=== PATIENT | male | born 1950 | race Two or more races ===

== ENCOUNTER 2017-10-30 09:12 | Outpatient (CLI) | payer OTHER ==
[~2017-10-30 09:12] MED LIST: COZAAR100 MG PO; MAVIK1 MG; SYNTHROID100 MCG
== END 2017-10-30 09:19 | disposition home or self-care (01) ==
LOC: SONOGRAMA 09:12
DX: R31.9 Hematuria, unspecified (principal); N40.0 Benign prostatic hyperplasia without lower urinary tract symptoms; N20.0 Calculus of kidney

== ENCOUNTER 2017-10-30 09:15 | Outpatient (CLI) | payer OTHER | END 2017-10-30 09:18 | disposition home or self-care (01) | LOC: RAD 09:15 | DX: N40.0 Benign prostatic hyperplasia without lower urinary tract symptoms (principal); R31.9 Hematuria, unspecified; N20.0 Calculus of kidney ==

== ENCOUNTER → 2017-12-07 | Day surgery (SDC) | payer OTHER | END | disposition home or self-care (01) | LOC: CIR.AMB 12-04 06:33 → CIR LITO 06:05 → CIR.AMB 08:07 → CIR LITO 15:42 | DX: N20.0 Calculus of kidney (principal) ==

== ENCOUNTER 2018-09-26 13:39 | Outpatient (CLI) | payer OTHER | END 2018-09-26 14:36 | disposition home or self-care (01) | LOC: NUCLEAR 13:39 | DX: M25.552 Pain in left hip (principal); M25.562 Pain in left knee; M54.89 Other dorsalgia | CPT/HCPCS: 78315; A9503 ==

== ENCOUNTER → 2020-01-01 10:48 | Outpatient (CLI) | payer OTHER | END | disposition home or self-care (01) | LOC: EKG 10:48 | DX: I10 Essential (primary) hypertension (principal) ==

== ENCOUNTER → 2020-09-03 09:51 | Outpatient (CLI) | payer OTHER | END | disposition home or self-care (01) | LOC: LAB 09:51 | PROVIDERS: ATTEND Internal Medicine Hematology & Oncology | DX: D50.8 Other iron deficiency anemias (principal); I10 Essential (primary) hypertension; R74.02 Elevation of levels of lactic acid dehydrogenase [LDH]; K76.89 Other specified diseases of liver; E55.9 Vitamin D deficiency, unspecified; R79.89 Other specified abnormal findings of blood chemistry; B20 Human immunodeficiency virus [HIV] disease; B17.8 Other specified acute viral hepatitis; Z11.59 Encounter for screening for other viral diseases; R97.0 Elevated carcinoembryonic antigen [CEA]; R97.8 Other abnormal tumor markers; R97.20 Elevated prostate specific antigen [PSA]; B00.89 Other herpesviral infection; R59.1 Generalized enlarged lymph nodes; E03.8 Other specified hypothyroidism; G62.89 Other specified polyneuropathies ==

== ENCOUNTER 2022-08-03 06:44 | Day surgery (SDC) | payer OTHER | END 2022-08-03 13:10 | disposition home or self-care (01) | LOC: AMB-ENDOS 06:44 | PROVIDERS: ATTEND Internal Medicine Gastroenterology | DX: C16.0 Malignant neoplasm of cardia (principal); Z20.822 Contact with and (suspected) exposure to COVID-19 ==